=== PATIENT | female | born 2000 ===

== ENCOUNTER → 2023-10-14 | Day surgery (SDC) | payer OTHER ==
[~2023-10-14] MED LIST: LIDOCAINE 1% INJ 10MG/ML (20 ML MDV) ONE; PROPOFOL 10 MG/ML 20 ML VIAL IV ONE
[2023-10-14 12:48] VITALS: TEMP 97.9
[2023-10-14] MEDS: LACTATED RINGERS 1,000 ML IV SCH (12:54)
[2023-10-14] MEDS: IV FLUID CONTINUATION 1,000 ML IV ONE (12:54)
--- NOTE | 2023-10-14 13:16 | P.PCN ---
Date of Procedure: 10/14/23 Procedure(s) Performed: BRIEF HISTORY: Patient is a 23-year-old pleasant white female scheduled for an elective colonoscopy as a part of evaluation of intermittent rectal bleeding and change in bowel habits for the last several months duration. PROCEDURE PERFORMED: Colonoscopy. PREOPERATIVE DIAGNOSIS: Intermittent lower abdominal pain and rectal bleeding/change in bowel habits. IV sedation per Anesthesia. PROCEDURE: After informed consent was obtained, the patient, was brought into the endoscopy unit. IV sedation was administered by Anesthesia under continuous monitoring. Digital rectal examination was normal. Initially the Olympus CF-160 flexible video colonoscope was then inserted in the rectum, gradually advanced into the cecum without any difficulty. Careful examination was performed as the scope was gradually being withdrawn. Ileocecal valve and the appendiceal orifice were visualized and appeared normal. Prep was excellent. Mucosa of the cecum, ascending colon, transverse colon, descending colon, sigmoid colon, and rectum appeared normal. Retroflexion was performed in the rectum and no lesions were seen. The patient tolerated the procedure well. IMPRESSION: Normal-appearing colon from rectum to cecum no evidence of colitis or colorectal neoplasia. RECOMMENDATIONS: Findings of this examination were discussed with the patient as well as her family. She was advised to be on high-fiber diet and fiber supplements on a regular basis..
[2023-10-14 13:49] VITALS: BP 107/68; PULSE 63; RESP 15
== END ==
LOC: ORWHC2ENDO 11:20
PROVIDERS: ATTEND Internal Medicine Gastroenterology
DX: K62.5 Hemorrhage of anus and rectum
CPT/HCPCS: 45378; 81025